=== PATIENT | female | born 1945 | race Caucasian/White ===

== ENCOUNTER 2017-09-17 13:33 | Emergency (ER) ==
[2017-09-17 13:41] VITALS: BP 177/97; TEMP 98.8; BMI 24.6
--- NOTE | 2017-09-17 13:51 | ED.PDOC ---
General ED Provider: Dr. JENSEN SHAW Chief Complaint: Non-specific Complaint Stated Complaint: Dizziness and vertigo. HPI: The patient, a 72 y/o white female presents stating that she had been recently evaluated for dizziness and vertio by neurologist in [place] last week. Was prescribed on trans scopolamine patch. She states she put on the first one Thursday and was groggy Thursday. On Thursday morning she states she started having severe hot flashes follow by severe itching of her scalp that awakened last night she woke and head was itching really bad. She had associated hot flashes as well as associated tingling of her hands. States she told her to take off patch. States her veritgo was very severe approx. 15 minutes after taking off patch. States she had heart palpitations last evening. Time Seen by Physician: 13:45 Mode of Arrival: Ambulance Information Source: Patient, EMT Exam Limitations: No limitations Primary Care Provider: RAQUEL RILEY Nursing and Triage Documentation Reviewed and Agree: Yes Reviewed sepsis parameters & appropriate labs ordered?: Yes System Inflammatory Response Syndrome: Not Applicable Sepsis Protocol: For patient's 13 years and over: Temp is 96.8 and below OR 101 and greater Pulse >90 BPM Resp >20/minute Acutely Altered Mental Status Are patient's symptoms suggestive of a new infection, such as: -Pneumonia -Skin, Soft Tissue -Endocarditis -UTI -Bone, Joint Infection -Implantable Device -Acute Abdominal Infection -Wound Infection -Meningitis -Blood Stream Catheter Infection -Unknown System Inflammatory Response Syndrome: Not Applicable Review of Systems - Review Of Systems Constitutional: Reports: No symptoms Eyes: Reports: No symptoms Ears, Nose, Mouth, Throat: Reports: No symptoms Respiratory: Reports: No symptoms Cardiac: Reports: No symptoms GI: Reports: No symptoms : Reports: No symptoms Musculoskeletal: Reports: No symptoms Skin: Reports: No symptoms Neurological: Reports: Anxiety Endocrine: Reports: No symptoms Hematologic/Lymphatic: Reports: No symptoms All Other Systems: Reviewed and Negative Past Medical History - Past Medical History Endocrine: Reports: None Cardiovascular: Reports: None Respiratory: Reports: None Hematological: Reports: None Gastrointestinal: Reports: None Genitourinary: Reports: None Neuro/Psych: Reports: None Musculoskeletal: Reports: Back Pain (neck tightness) Cancer: Reports: None Last Menstrual Period: n/a - Surgical History General Surgical History: Reports: None - Family History Family History: Reports: None - Social History Smoking Status: Never smoker Hx Substance Use: No Alcohol Screening: None Physical Exam - Physical Exam Appearance: Ill-appearing Ill-appearing: Moderate Pain Distress: Mild Eyes: MARZENA, EOMI, Conjunctiva clear, Conjunctiva inflammed ENT: Ears normal, Nose normal Respiratory: Airway patent, Breath sounds clear Cardiovascular: RRR, Pulses normal GI/: Soft, Nontender, No masses Musculoskeletal: Normal strength, ROM intact (Cervical spine paraspinous muscular spasm) Neurological: Sensation intact, Motor intact, Reflexes intact, Cranial nerves intact Psychiatric: Affect appropriate, Mood appropriate, Anxious (horizonal gaze nystagmus) Critical Care Note - Critical Care Note Total Time (mins): 0 Course - Course Hematology/Chemistry: 09/17/17 14:10 09/17/17 14:10 Vital Signs: Temp Pulse Resp BP Pulse Ox 09/17/17 13:33 98.8 F 78 20 177/97 H 99 Departure - Departure Time of Disposition: 16:30 Disposition: HOME SELF-CARE Discharge Problem: Vertigo, Vertiginous migraine Instructions: Migraine Headache (ED), Vertigo (ED), Trigger Point Pain (ED), Neck Exercises (GEN) Condition: Good Pt referred to PMD for follow-up: Yes IPMP verified?: No Allergies/Adverse Reactions: Allergies codeine Adverse Reaction (Verified 09/17/17 13:41) Home Medications: Ambulatory Orders Hydroxyzine HCl 50 mg PO Q6HR PRN #30 tablet 09/17/17 Disposition Discussed With: Patient, Family Additional Information: Apply warm moist heat to cervical region Apply gentle trigger pressure point therapy to site of tenderness Take Hydroxyzine 50 mg every 6 hours of relaxation and relief of anxiety /Nausea Monitor dietary restrictions for migraine Headaches
[2017-09-17] MEDS ORDERED: ATARAX PO STA (15:03)
== END 2017-09-17 17:37 | disposition home or self-care (01) ==
LOC: ED 13:33
DX: G43.909 Migraine, unspecified, not intractable, without status migrainosus (principal); R42 Dizziness and giddiness; M43.6 Torticollis; M54.9 Dorsalgia, unspecified; M62.830 Muscle spasm of back
CPT/HCPCS: 36415; 80053; 85025; 93005; 93010; 99283